=== PATIENT | male | born 1995 | race Caucasian/White ===

== ENCOUNTER 2021-01-14 09:39 | Emergency (ER) | payer OTHER ==
[~2021-01-14] VITALS: Ht 182.9 cm; Wt 102.7 kg
[2021-01-14 09:41] VITALS: BP 138/84
== END 2021-01-14 12:41 | disposition home or self-care (01) ==
LOC: M ED 09:39
DX: R11.10 Vomiting, unspecified (principal); Z20.822 Contact with and (suspected) exposure to COVID-19
CPT/HCPCS: 99283; U0003

== ENCOUNTER 2021-02-12 13:03 | Emergency (ER) | payer OTHER ==
[~2021-02-12] VITALS: Ht 182.9 cm; Wt 100.0 kg
[2021-02-12] MEDS ORDERED: NS 1,000 ML IV ONE (13:10)
[2021-02-12 13:29] LABS: BASO # 0.1 10^3/uL (0.0-0.2); BASO % 1.4 % (0.0-1.0); EOS # 0.2 10^3/uL (0.0-0.5); EOS % 3.3 % (0.0-3.0); HEMATOCRIT 44.8 % (42.0-52.0); HEMOGLOBIN 15.1 g/dl (13.5-17.5); LYMPH # 1.8 10^3/uL (1.5-5.0); LYMPH % 27.2 % (24.0-44.0); MEAN CORPUSCULAR HEMOGLOBIN 31.2 pg (27.0-33.0); MEAN CORPUSCULAR HGB CONC 33.7 g/dl (32.0-36.5); MEAN CORPUSCULAR VOLUME 92.6 fl (80.0-96.0); MONO # 0.6 10^3/uL (0.0-0.8); MONO % 9.2 % (2.0-8.0); NEUTROPHILS # 3.8 10^3/uL (1.5-8.5); NEUTROPHILS % 58.6 % (36.0-66.0); PLATELET COUNT, AUTOMATED 247 10^3/uL (150-450); RED BLOOD COUNT 4.84 10^6/uL (4.30-6.10); WHITE BLOOD COUNT 6.4 10^3/uL (4.0-10.0)
[2021-02-12] MEDS ORDERED: ISOVUE-370 76% 100ML VIAL As Ordered ONE (13:57)
[2021-02-12 13:58] LABS: ALBUMIN 4.1 GM/DL (3.2-5.2); ALT/SGPT 39 U/L (12-78); BILIRUBIN,DIRECT 0.2 MG/DL (0.0-0.2); BILIRUBIN,TOTAL 0.5 MG/DL (0.2-1.0); BLOOD UREA NITROGEN 17 MG/DL (7-18); CALCIUM LEVEL 9.4 MG/DL (8.5-10.1); CARBON DIOXIDE LEVEL 27 MEQ/L (21-32); CHLORIDE LEVEL 108 MEQ/L (98-107); CREATININE FOR GFR 1.13 MG/DL (0.70-1.30); GLOMERULAR FILTRATION RATE > 60.0 (>60); GLUCOSE, FASTING 80 MG/DL (70-100); POTASSIUM SERUM 4.4 MEQ/L (3.5-5.1); SODIUM LEVEL 139 MEQ/L (136-145); TOTAL PROTEIN 7.6 GM/DL (6.4-8.2)
--- OUTSIDE RECORDS SUMMARY | 2021-02-12 14:10 | CCD ---
Author Author [facility] Address Unknown Phone Unavailable Support Name Relationship Address Phone [facility] Next Of Kin [address] [place] [address] Unavailable Re-disclosure Warning The records that you are about to access may contain information from federally-assisted alcohol or drug abuse programs. If such information is present, then the following federally mandated warning applies: This information has been disclosed to you from records protected by federal confidentiality rules (42 CFR part 2). The federal rules prohibit you from making any further disclosure of this information unless further disclosure is expressly permitted by the written consent of the person to whom it pertains or as otherwise permitted by 42 CFR part 2. A general authorization for the release of medical or other information is NOT sufficient for this purpose. The Federal rules restrict any use of the information to criminally investigate or prosecute any alcohol or drug abuse patient.The records that you are about to access may contain highly sensitive health information, the redisclosure of which is protected by Article 27-F of the [facility] Public Health law. If you continue you may have access to information: Regarding HIV / AIDS; Provided by facilities licensed or operated by the [facility] Office of Mental Health; or Provided by the [facility] Office for People With Developmental Disabilities. If such information is present, then the following [facility] mandated warning applies: This information has been disclosed to you from confidential records which are protected by state law. State law prohibits you from making any further disclosure of this information without the specific written consent of the person to whom it pertains, or as otherwise permitted by law. Any unauthorized further disclosure in violation of state law may result in a fine or retirement sentence or both. A general authorization for the release of medical or other information is NOT sufficient authorization for further disc losure. Medications No Information Insurance Providers Payer name Policy type / Coverage type Policy ID Covered alliance party ID Covered alliance party's relationship to [employer] Policy [employer] Plan [facility] [employer] [id number] Problems, Conditions, and Diagnoses No Information Surgeries/Procedures No Information Results ID Date Data Source [id number] 01/14/2021 10:35:00 AM EDT [facility] Name Value Range Interpretation Code Description Data Bharti rce(s) Supporting Document(s) SARS COVID ANTIGEN NEGATIVE [facility] This lab was ordered by LUIS ENRIQUE cintron nd reported by [facility]. Procedure Social History No Information
--- NOTE | 2021-02-12 14:40 | REP ---
INDICATION: Trauma. COMPARISON: None. TECHNIQUE: Standard helical technique after the intravenous administration of 100 cc Isovue 370 FINDINGS: The liver, gallbladder, spleen, pancreas, adrenal glands, and kidneys are within normal limits. The abdominal aorta and para-aortic regions are within normal limits. The bowel loops and mesenteries are within normal limits. There is no evidence of free fluid or free air. Bone window technique throughout the exam shows bilateral L5 spondylolysis with a minimal grade 1 L5 upon S1 spondylolisthesis. There is no evidence of an acute fracture. IMPRESSION: No acute abnormalities are identified. Findings as described above. <Electronically signed by Clyde Mims > 02/12/21 [id number]
--- NOTE | 2021-02-12 14:43 | REP ---
INDICATION: Trauma COMPARISON: None. TECHNIQUE: Standard helical technique after the intravenous administration of 100 cc Isovue 370 FINDINGS: The mediastinum and pulmonary don are within normal limits. The thoracic aorta is within normal limits. There are no pleural or pericardial effusions. The imaged osseous structures are within normal limits. Evaluation of the lung clarke shows no abnormal nodules, masses, or opacities. IMPRESSION: CT findings are within normal limits. <Electronically signed by Clyde Mims > 02/12/21 [id number]
--- NOTE | 2021-02-12 14:46 | REP ---
INDICATION: Trauma. COMPARISON: None. TECHNIQUE: CT brain performed in the axial plane. Coronal reconstruction images are performed. FINDINGS: The ventricles are normal in size and position.. There is no midline shift or mass effect. Rodríguez-white differentiation is well maintained. There is no acute intracranial hemorrhage or extra-axial fluid collection. Bone window examination is unremarkable. The visualized mastoid air cells and paranasal sinuses are clear. IMPRESSION: Negative noncontrast CT brain. <Electronically signed by Eduard Rodríguez > 02/12/21 [id number]
--- NOTE | 2021-02-12 14:48 | REP ---
INDICATION: Trauma. COMPARISON: None. TECHNIQUE: CT cervical spine performed in the axial plane, with sagittal and coronal reconstruction images performed. FINDINGS: There is no acute compression fracture or malalignment. There is no prevertebral soft tissue swelling. Disc spaces are well preserved. There is normal cervical lordosis. There is no abnormal density in the spinal canal. IMPRESSION: No evidence of acute fracture or dislocation. <Electronically signed by Eduard Rodríguez > 02/12/21 [id number]
--- NOTE | 2021-02-12 14:52 | REP ---
INDICATION: TRAUMA. COMPARISON: None. TECHNIQUE: Axial CT with sagittal and coronal reconstruction images. FINDINGS: There is no compression fracture. The vertebral bodies are normal in height. There is chronic spondylolysis of L5. There is minimal anterior grade 1 spondylolisthesis of L5 on S1. The disc spaces are well preserved. There is no abnormal density in the spinal canal. IMPRESSION: No acute fracture. Chronic spondylolysis L5 with minimal anterior spondylolisthesis of L5 on S1. <Electronically signed by Eduard Rodríguez > 02/12/21 [id number]
--- NOTE | 2021-02-12 14:57 | REP ---
INDICATION: TRAUMA. COMPARISON: None. TECHNIQUE: Axial CT thoracic spine, sagittal and coronal reconstruction images. FINDINGS: There is no compression fracture or malalignment. There is normal thoracic kyphosis. Disc spaces are well preserved. Posterior elements appear intact. No abnormal density is seen in the spinal canal. IMPRESSION: No evidence of acute fracture or dislocation. <Electronically signed by Eduard Rodríguez > 02/12/21 [id number]
[2021-02-12] MEDS ORDERED: MORPHINE 4 MG/ML 1ML VIAL/SYRINGE (J2270) IV ONE (15:30)
[2021-02-12 15:37] LABS: APPEARANCE, URINE CLEAR (CLEAR); BACTERIA, URINE AUTO NEGATIVE (NEGATIVE); BILIRUBIN, URINE AUTO NEGATIVE (NEGATIVE); BLOOD, URINE BLOOD NEGATIVE (NEGATIVE); COLOR, URINE YELLOW (YELLOW); GLUCOSE, URINE (UA) AUTO NEGATIVE (NEGATIVE); KETONE, URINE AUTO TRACE mg/dL (NEGATIVE); LEUKOCYTE ESTERASE, URINE AUTO NEGATIVE (NEGATIVE); NITRITE, URINE AUTO NEGATIVE (NEGATIVE); PROTEIN, URINE AUTO NEGATIVE (NEGATIVE); RBC, URINE AUTO 0 /HPF (0-3); SPECIFIC GRAVITY URINE AUTO 1.033 (1.002-1.035); SQUAMOUS EPITHELIAL CELL UR AU 0 /HPF (0-6); UROBILINOGEN, URINE AUTO 0.2 mg/dL (0.0-2.0); WBC, URINE AUTO 0 /HPF (0-3)
[2021-02-12 15:49] VITALS: BP 140/81
--- NOTE | 2021-02-13 09:42 | ECGEPIP ---
[facility] - ED Test Date: 2021-02-12 Pat Name: SYLVESTER HALLMAN Department: Room: - Gender: Male Classroom Teacher: NIRAV : 1995 Requested By: RIMA Ibarra Order Number: [id number] Reading MD: Ercia Guzmán Measurements Intervals Myton Rate: 57 P: -3 DE: 116 QRS: 56 QRSD: 100 T: 24 QT: 398 QTc: 387 Interpretive Statements Sinus bradycardia No prior Electronically Signed on 02-13-2021 9:42:17 EDT by Erica Guzmán
== END 2021-02-12 15:59 | disposition home or self-care (01) ==
LOC: M ED 13:03 → EDBD 13:03 → M ED 15:59
DX: S30.1XXA Contusion of abdominal wall, initial encounter (principal); S30.0XXA Contusion of lower back and pelvis, initial encounter; R00.1 Bradycardia, unspecified; W17.89XA Other fall from one level to another, initial encounter; Y92.9 Unspecified place or not applicable; Y93.89 Activity, other specified; Y99.9 Unspecified external cause status; M43.06 Spondylolysis, lumbar region
CPT/HCPCS: 70450; 71260; 72125; 72128; 72131; 74177; 80047; 80048; 80076; 81001; 85025; 93005; 93041; 94760; 96360; 99285; Q9967